=== PATIENT | male | born 1945 | race Caucasian/White ===

== ENCOUNTER → 2016-11-15 | Outpatient (CLI) | payer MEDICARE ==
--- NOTE | 2016-11-15 21:24 | CONS ---
DATE OF CONSULTATION: Referring physician: Dr. Hodge. 71-year-old male patient with an established diagnosis of obstructive sleep apnea more than 20 years ago. The patient was on CPAP treatment for approximately 15 years and subsequently he quit as his machine broken and he did not come for a further follow-up. Over the past 5 years, the patient has been on no treatment and he has typical manifestation of KATY including snoring, witnessed apneas and sleep fragmentation, nocturia, dry mouth in the morning and excessive hypersomnia and sleepiness during the day. His current [place] score 16. He can fall asleep easily at all times when left unstimulated. He goes to bed between 11:00 and midnight and wakes up multiple times in the middle of night. On average, he is taking around 5 to 6 hours of sleep per night. He does not feel refreshed at all. He is coming in for further investigation. He gradually has gained weight over the years. PAST MEDICAL HISTORY: 1. Obstructive sleep apnea details discussed above. 2. Peripheral vascular disease. 3. Benign prostatic hypertrophy. 4. Coronary artery disease with previous myocardial infarction. 5. Peptic ulcer disease. 6. Chronic renal failure. 7. Diabetes mellitus. 8. Alcoholism. 9. Hyperlipidemia. 10. Abdominal wall hernia. Surgical history includes upper endoscopy. ALLERGIES: Not known. Medication list includes: 1. Pepcid 20 mg b.i.d. 2. Lipitor 20 mg p.o. daily. 3. Carafate 1 gram q.i.d. 4. Tamsulosin 0.4 mg p.o. daily. 5. Protonix 40 daily. 6. Lasix 20 mg 2 pills in the morning 1 pill in the evening. 7. Metformin 5 mg b.i.d. 8. Oxybutynin 5 mg p.o. b.i.d. 9. Cardizem 60 mg p.o. b.i.d. SOCIAL HISTORY: The patient is a 1 pack a day smoker, used to drink alcohol excessively in the past. Currently he has cut down significantly. No history of IV drugs. FAMILY HISTORY: Negative for sleep apnea. REVIEW OF SYSTEMS: Twelve-point review of systems was done. No nocturnal heartburn. No grinding of the teeth. No anxiety or panic attacks. No palpitations. No sleepwalking or sleeptalking. No hallucinations. No cataplexy. No falling. No head trauma. No meningitis. No angina. BP is 203/126, and the patient claims not to have taken blood pressure medication today. Pulse 104, respirations 24, temperature 98.4, saturation 94% on room air. Neck size 17-1/2 inches. Weight is a ( ). Height is 5 feet 11 inches. BMI is 38.7. GENERAL APPEARANCE: Calm, comfortable. HEENT: Multiple missing teeth, poor dentition and poor dental status. There is Mallampati class II. LUNGS: Clear to auscultation. HEART: Sounds are regular rate and rhythm. Normal S1, S2. No S3, no S4 no murmurs. ABDOMEN: Distended, soft, large anterior abdominal hernia can be appreciated. EXTREMITIES: Trace edema. There is no cyanosis or clubbing. IMPRESSION: 1. Obstructive sleep apnea, symptomatic coming in for re-evaluation. 2. Hypersomnia, chronic, exacerbated since the patient has been off treatment for the past several years. [place] score is 16, obesity, body mass index 38.7. 3. Coronary artery disease previous myocardial infarction. 4. Peptic ulcer disease. 5. Chronic renal failure. 6. Diabetes mellitus. 7. History of alcoholism. 8. Hyperlipidemia. 9. Peripheral vascular disease. 10. Benign prostatic hypertrophy. 11. Abdominal wall hernia. PLAN: 1. Proceed with a home sleep study to document the presence of sleep apnea and assess severity. Following that, the patient will likely need a CPAP titration. He opts do his titration at home if possible and for that reason, I may end up giving him an auto CPAP unit for home titration. I am in the process of confirming the presence of the disease prior to making any further recommendations. 2. Encourage weight loss. 3. Improve sleep hygiene measures and extend sleep hours to an average of 7 to 8 hours per night. 4. Will continue to follow.
== END ==
LOC: SLEEP 13:30
PROVIDERS: ATTEND Internal Medicine Critical Care Medicine
DX: G47.33 Obstructive sleep apnea (adult) (pediatric) (principal); G47.10 Hypersomnia, unspecified; I25.10 Atherosclerotic heart disease of native coronary artery without angina pectoris; I25.2 Old myocardial infarction; K30 Functional dyspepsia; E11.22 Type 2 diabetes mellitus with diabetic chronic kidney disease; N18.9 Chronic kidney disease, unspecified; E78.5 Hyperlipidemia, unspecified; I73.9 Peripheral vascular disease, unspecified; K43.9 Ventral hernia without obstruction or gangrene; D29.1 Benign neoplasm of prostate; Z79.899 Other long term (current) drug therapy; Z79.891 Long term (current) use of opiate analgesic
CPT/HCPCS: 99211

== ENCOUNTER → 2017-07-06 | Outpatient (CLI) | payer MEDICARE ==
--- NOTE | 2017-07-06 12:40 | US ---
EXAMINATION TYPE: US kidneys/renal and bladder DATE OF EXAM: 07/06/2017 COMPARISON: Outside MRI CLINICAL HISTORY: N28.89 Renal lesion. Renal lesion seen on MRI EXAM MEASUREMENTS: Right Kidney: 13.0 x 6.2 x 5.7 cm Left Kidney: 12.0 x 5.9 x 5.6 cm Right Kidney: Appeared wnl Left Kidney: Possible hypoechoic lesion lateral= 1.7 x 1.3 x 1.7 cm . Bladder: wnl Bilateral Jets seen: Only left jet visualized There is no evidence for hydronephrosis at this point in time. No nephrolithiasis is seen. The uri nary bladder is anechoic. Bilateral ureteral jets are seen. IMPRESSION: Hypoechoic lesion left kidney is nonspecific. CT is recommended for further characterization.
== END | disposition home or self-care (01) ==
LOC: RADUSWWP 11:59
PROVIDERS: ATTEND Orthopaedic Surgery
DX: N28.89 Other specified disorders of kidney and ureter (principal)
CPT/HCPCS: 76770